=== PATIENT | female | born 1975 | race Hispanic/Latino ===

== ENCOUNTER 2017-03-13 16:00 | Emergency (ER) | payer SELFPAY | END 2017-03-13 20:51 | disposition left against medical advice (07) | LOC: ED 16:00 | DX: N20.0 Calculus of kidney (principal); Z53.21 Procedure and treatment not carried out due to patient leaving prior to being seen by health care provider ==

== ENCOUNTER 2017-06-02 06:26 | Day surgery (SDC) | payer MEDICAID ==
--- NOTE | 2017-06-02 07:50 | Discharge Summary ---
Providers - Providers Date of discharge: 06/02/17 Attending physician: ALPHONSE ELI Primary care physician: SEAM STEAMER Hospitalization Condition: Good Procedures: egd Disposition: - TO HOME OR SELFCARE Core Measure Documentation - Palliative Care Palliative Care/ Comfort Measures: Not Applicable - Core Measures Any of the following diagnoses?: none Exam - Physical Exam Narrative exam: unchanged from pre-op Plan Activity: no restrictions Weight Bearing Status: Full Weight Bearing Diet: regular Follow up with: PRIMARY CARE, [Primary Care Provider] - 7 Days
--- NOTE | 2017-06-02 08:14 | Anesthesia Consultation ---
Anesthesia Consult and Med Hx Date of service: 06/02/17 - Airway Anesthetic Teeth Evaluation: Good ROM Head & Neck: Adequate Mental/Hyoid Distance: Adequate Mallampati Class: Class II Intubation Access Assessment: Probably Good - Pulmonary Exam CTA: Yes - Cardiac Exam Cardiac Exam: RRR - Pre-Operative Health Status ASA Pre-Surgery Classification: ASA3 Proposed Anesthetic Plan: MAC - Pulmonary Hx Sleep Apnea: Yes (CPAP) - Central Nervous System Hx Psychiatric Problems: No - Gastrointestinal Hx Gastroesophageal Reflux Disease: No (never gets heartburn) - Hematic Hx Anemia: No Hx Sickle Cell Disease: No - Other Systems Hx Cancer: No Hx Obesity: Yes (morbid)
--- NOTE | 2017-06-02 08:14 | Anesthesia Day of Surgery ---
Anesthesia Day of Surgery - Day of Surgery Patient Examined: Yes Patient H&P Reviewed: Yes Patient is NPO: Yes
[2017-06-02] MEDS ORDERED: NACL 0.9% 1000 ML 1,000 ML IV SCH (09:00)
--- NOTE | 2017-06-02 10:04 | Operative Report ---
Operative Report Operative Report: OPERATIVE REPORT - EGD DATE 06/02/17 SURGERY: Upper endoscopy. SURGEON: Lynn Selby M.D. PRE OP DX: dyspepsia POST OP DX: small hiatal hernia TYPE OF ANESTHESIA: MAC. ESTIMATED BLOOD LOSS: None. COMPLICATIONS: None. SPECIMENS REMOVED: None. FINDINGS: 1. Small hiatal hernia. 2. Otherwise, normal esophagus, stomach and first portion of duodenum. INDICATIONS:INDICATION FOR PROCEDURE: Patient is a 41-year-old female with a long history of morbid obesity. She is planned to have a weight loss procedure and is here for preoperative planning EGD. We are evaluating for any pathology that may explain her symptoms or be a contraindication for bariatric surgery. PROCEDURE DETAILS: After consent was reviewed, patient was taken back to the operating room where patient was placed in the left lateral decubitus position and a bite block was placed in the mouth. After a time-out was called, MAC anesthesia was initiated. I then passed the endoscope into her oropharynx, into her esophagus, visualized the entire esophagus, which was all within normal limits. I then visualized the stomach and the first portion of the duodenum and there were no abnormalities I could clearly visualize. I then retroflexed the scope in the stomach and visualized the hiatus and I could see a small hiatal hernia. I then desufflated the stomach and removed the endoscope. Patient tolerated procedure well and was transferred to recovery room in good and stable condition.
[2017-06-02] MEDS ORDERED: DIPRIVAN 10 MG/ML IV ONE (10:25)
--- NOTE | 2017-06-02 10:37 | Post Anesthesia Evaluation ---
- Post Anesthesia Evaluation Patient Participated: Yes Airway Patent: Yes Stable Respiratory Function: Yes Temp > 96.8F: Yes Pain Manageable: Yes Adequeate Hydration: Yes Anesthesia Complications: No
[2017-06-02 12:35] VITALS: BP 117/69
== END 2017-06-02 06:27 | disposition home or self-care (01) ==
LOC: GIO 06:26
PROVIDERS: ATTEND Surgery
DX: K44.9 Diaphragmatic hernia without obstruction or gangrene (principal); G47.33 Obstructive sleep apnea (adult) (pediatric); F30.10 Manic episode without psychotic symptoms, unspecified; E66.01 Morbid (severe) obesity due to excess calories; Z68.41 Body mass index [BMI] 40.0-44.9, adult; Z98.890 Other specified postprocedural states; Z98.51 Tubal ligation status
CPT/HCPCS: 43235; 81025; J2704; J7030

== ENCOUNTER 2017-06-02 09:45 | Inpatient (IN) | payer MEDICAID ==
[2017-06-09] MEDS ORDERED: NACL BACTERIOSTATIC INFILTRATI ONE (06:57)
[2017-06-09] MEDS ORDERED: NACL 0.9% 1000 ML 1,000 ML IV SCH (07:00)
[2017-06-09] MEDS ORDERED: ANCEF/STERILE WATER 2 GM/20 ML IV NR (07:00)
[2017-06-09] MEDS ORDERED: TRANSDERM-SCOP TD NR (07:00)
[2017-06-09] MEDS ORDERED: VERSED IV NR (07:19)
--- NOTE | 2017-06-09 07:23 | Anesthesia Consultation ---
Anesthesia Consult and Med Hx Date of service: 06/09/17 - Airway Anesthetic Teeth Evaluation: Good ROM Head & Neck: Adequate Mental/Hyoid Distance: Adequate Mallampati Class: Class III Intubation Access Assessment: Possibly Difficult - Pre-Operative Health Status ASA Pre-Surgery Classification: ASA3 Proposed Anesthetic Plan: General - Pulmonary Hx Sleep Apnea: Yes - Central Nervous System Hx Psychiatric Problems: No - Gastrointestinal Hx Gastroesophageal Reflux Disease: No (never gets heartburn) - Hematic Hx Anemia: No Hx Sickle Cell Disease: No - Other Systems Hx Cancer: No Hx Obesity: Yes (morbid BMI 43.8)
--- NOTE | 2017-06-09 07:23 | Anesthesia Day of Surgery ---
Anesthesia Day of Surgery - Day of Surgery Patient Examined: Yes Patient H&P Reviewed: Yes Patient is NPO: Yes
[2017-06-09] MEDS ORDERED: ZEMURON IV ONE (07:24)
[2017-06-09] MEDS ORDERED: MARCAINE-EPI/PF 0.5%-1:200,000 INFILTRATI ONE ×2 (07:24→07:46)
[2017-06-09] MEDS ORDERED: XYLOCAINE 1% 20 mL ONE (07:24)
[2017-06-09] MEDS ORDERED: XYLOCAINE MPF 2% ONE (07:25)
[2017-06-09] MEDS ORDERED: DILAUDID ONE ×2 (07:25→12:04)
[2017-06-09] MEDS ORDERED: DIPRIVAN 10 MG/ML IV ONE (07:25)
[2017-06-09] MEDS ORDERED: PEPCID IV SCH (07:30)
[2017-06-09] MEDS ORDERED: FLAGYL 500 MG/100 ML 500 MG/100 ML BAG IV NR (07:30)
[2017-06-09] MEDS ORDERED: LOVENOX SUB-Q NR (07:30)
[2017-06-09] MEDS ORDERED: XYLOCAINE 1% 20 mL INFILTRATI ONE (07:46)
[2017-06-09] MEDS ORDERED: DILAUDID IV PRN (07:46)
[2017-06-09] MEDS ORDERED: ZOFRAN IV PRN ×2 (07:46→12:06)
[2017-06-09] MEDS ORDERED: NACL 0.9% IR ONE ×2 (07:46)
[2017-06-09] MEDS ORDERED: APRESOLINE IV PRN (07:58)
[2017-06-09] MEDS ORDERED: NORCO PO PRN (07:58)
[2017-06-09] MEDS ORDERED: ePHEDrine SULFATE ONE (08:56)
[2017-06-09] MEDS ORDERED: NACL 0.9% 1000 ML 1,000 ML ONE (09:23)
[2017-06-09] MEDS ORDERED: DECADRON ONE (09:30)
[2017-06-09] MEDS ORDERED: NEOSTIGMINE ONE (10:12)
[2017-06-09] MEDS ORDERED: ROBINUL ONE (10:12)
[2017-06-09] MEDS ORDERED: REGLAN IV PRN (11:00)
[2017-06-09] MEDS: TORADOL IV SCH ×3 (12:00→23:00)
[2017-06-09] MEDS ORDERED: DEMEROL IV PRN (12:06)
[2017-06-09] MEDS: DILAUDID IV PRN ×4 (12:12→12:45)
--- NOTE | 2017-06-09 12:52 | Post Anesthesia Evaluation ---
- Post Anesthesia Evaluation Patient Participated: Yes Airway Patent: Yes Stable Respiratory Function: Yes Nausea/Vomiting: No Temp > 96.8F: Yes Pain Manageable: Yes Adequeate Hydration: Yes Anesthesia Complications: No Block Receding Appropriately: Not Applicable Patient on Ventilator: No
[2017-06-09] MEDS: ZOFRAN IV PRN ×2 (15:48→19:51)
--- NOTE | 2017-06-09 16:20 | Operative Report ---
Operative Report Operative Report: Operative Report DATE OF PROCEDURE: 06/09/17 SURGEON: Lynn Selby M.D. HOG SCALDER: Jaylen Matson DO PREOPERATIVE DIAGNOSIS: Morbid obesity. POSTOPERATIVE DIAGNOSES: Morbid obesity PROCEDURES PERFORMED: 1. Laparoscopic gastric bypass. 2. EGD. ANESTHESIA: General endotracheal tube intubation. SPECIMENS: None. ESTIMATED BLOOD LOSS: Less than 10 mL. FINDINGS: Normal anatomy. COMPLICATIONS: None. INDICATION: Ms. Vanegas is a 41-year-old female with history of morbid obesity. She signed informed consent and expressed understanding of risks and benefits. DESCRIPTION OF PROCEDURE: Patient was brought to the OR suite, laid in supine position. Bilateral lower extremity SCDs were placed. General anesthesia was induced via successful endotracheal tube intubation. Patient's abdomen was prepped and draped in sterile fashion. Veress needle was inserted with ease into left upper quadrant. Insufflation to 12-15 was completed. Next using Optiview technique, a 12-mm trocar was placed into the abdominal cavity under direct vision. There was noted to be no gross injury to any intraabdominal structures. at the site of the veress needle insertion and the veress needle was removed. 5 working trocars were placed under direct visualization, 12 mm in the right mid abdomen mid clavicular line and four 5-mm trocars in the right upper quadrant, epigastric, left upper quadrant and left mid abdomen. At this time, the ligament of Treitz identified and followed down approximately 30 cm and the jejunum was transected. The distal segment of jejunum was then traced for approximately 75 cm and a stable [id number] jejunojejunostomy was performed. The common enterotomy was closed with 2 firings of the endoscopic stapler. The mesenteric defect was closed with running Surgidac suture. This anastomosis was found to be patent without kink, obstruction or bleeding. At this time, the patient was placed in steep reverse Trendelenburg position. A liver retractor was placed through the epigastric port to elevate the left lateral lobe of the liver. A small gastric pouch was formed. The Kaur limb was then brought in an antegastric antecolic fashion and secured with 2 stay sutures to the gastric pouch. After this, the enterotomies were made with Harmonic scalpel, and a [id number] stapled gastrojejunostomy was performed with a mechanical stapler. After this, a 2-layer running closure using Polysorb suture were done, the first being mucosal approximation prior to completion of the first layer. Next an EGD scope beyond the anastomosis to act as a stent. The first layer was completed, the second was then performed. After this, the EGD was retracted slightly. A bowel clamp was placed in a proximal Kaur limb. The anastomosis was submerged under saline. Via intraluminal EGD insufflation, there was noted be no bubbles in the saline indicating an airtight anastomosis. There was noted to be no obstruction or bleeding intraluminally in the pouch or the anastomosis. At this time, the scope was removed. The saline was aspirated. Tiseel was placed over the anastomosis. All trocars were removed under direct visualization and the abdomen was then desufflated. The skin incisions were closed with 4-0 Monocryl followed by Dermabond dressings. Patient was awoken and taken to recovery in stable condition. All counts were correct.
[2017-06-09] MEDS: ANCEF/NS 1 GM/50 ML 1 GM/50 ML BAG IV SCH (16:34)
[2017-06-09] MEDS: LACTATED RINGERS 1,000 ML IV SCH (16:37)
[2017-06-09] MEDS: MYLICON PO PRN (19:51)
[2017-06-09] MEDS: MORPHINE IV PRN ×2 (19:52→23:58)
[2017-06-09] MEDS: FLAGYL 500 MG/100 ML 500 MG/100 ML BAG IV SCH (22:52)
[2017-06-10] MEDS: MORPHINE IV PRN ×2 (03:17→08:33)
[2017-06-10] MEDS: ANCEF/NS 1 GM/50 ML 1 GM/50 ML BAG IV SCH (03:18)
[2017-06-10] MEDS: LACTATED RINGERS 1,000 ML IV SCH ×2 (03:18→10:38)
[2017-06-10 05:06] LABS: Basophils % (Auto) 0.4 % (0.0-1.8); Eosinophils % (Auto) 0.4 % (0.0-4.3); Hematocrit 35.7 % (30.3-42.9); Hemoglobin 11.9 gm/dl (10.1-14.3); Mean Corpuscular HGB Conc 33 % (30-34); Mean Corpuscular Hemoglobin 30 pg (28-32); Mean Corpuscular Volume 91 fl (79-97); Platelet Count 244 K/mm3 (140-440); Red Blood Count 3.92 M/mm3 (3.65-5.03); Red Cell Distribution Width 13.5 % (13.2-15.2); White Blood Count 11.9 K/mm3 (4.5-11.0)
[2017-06-10] MEDS: FLAGYL 500 MG/100 ML 500 MG/100 ML BAG IV SCH (05:21)
[2017-06-10 05:25] LABS: Alanine Aminotransferase 25 units/L (7-56); Albumin 3.3 g/dL (3.9-5); Albumin/Globulin Ratio 1.1 %; Alkaline Phosphatase 87 units/L (35-129); Anion Gap 19 mmol/L; BUN/Creatinine Ratio 11; Blood Urea Nitrogen 9 mg/dL (7-17); Calcium 8.4 mg/dL (8.4-10.2); Carbon Dioxide 24 mmol/L (22-30); Chloride 102.9 mmol/L (98-107); Glucose 98 mg/dL (65-100); Potassium 3.7 mmol/L (3.6-5.0); Sodium 142 mmol/L (137-145); Total Protein 6.3 g/dL (6.3-8.2)
[2017-06-10] MEDS: MYLICON PO PRN ×2 (05:25→15:04)
[2017-06-10] MEDS: TORADOL IV SCH ×2 (08:52→14:00)
--- NOTE | 2017-06-10 09:55 | Progress Note ---
Subjective Date of service: 06/10/17 Interval history: Pt is awake and alert. No anesthetic related complaints. Objective - Constitutional Vitals: Vital Signs - 12hr 06/09/17 06/09/17 06/10/17 23:35 23:36 04:34 Temperature 98.9 F 97.8 F Pulse Rate 84 67 59 L Respiratory 18 16 Rate Blood Pressure 124/69 114/63 O2 Sat by Pulse 97 97 97 Oximetry 06/10/17 06/10/17 07:25 09:16 Temperature 98.9 F Pulse Rate 76 Respiratory 18 Rate Blood Pressure 120/60 O2 Sat by Pulse 94 98 Oximetry - Labs CBC & Chem 7: 06/10/17 04:24 06/10/17 04:24 Labs: Abnormal lab results 06/10/17 06/10/17 Range/Units 04:24 04:24 WBC 11.9 H (4.5-11.0) K/mm3 Seg Neutrophils % 75.7 H (40.0-70.0) % Seg Neutrophils # 9.0 H (1.8-7.7) K/mm3 Albumin 3.3 L (3.9-5) g/dL
[2017-06-10] MEDS ORDERED: LOVENOX SUB-Q SCH (10:00)
--- NOTE | 2017-06-10 12:25 | Discharge Summary ---
Providers - Providers Date of Admission: 06/09/17 05:54 Date of discharge: 06/10/17 Attending physician: ALPHONSE ELI 06/09/17 06:47 Consult to Anesthesiology [CONS] Routine Consulting Provider: RYAN ANESTHESIA CECE TERRAZAS Reason For Exam: SURGERY TODAY Primary care physician: NATALI MURRAY MD Hospitalization Condition: Good Procedures: lap gastric bypass Hospital course: pt was admitted and observed after an uneventful laparoscopic gastric bypass. She remained afebrile and hemodynamically stable while tolerating clear liquids and ambulating. She was discharged to home after showing no clinical signs of leak or bleeding. Disposition: DC-01 TO HOME OR SELFCARE Core Measure Documentation - Palliative Care Palliative Care/ Comfort Measures: Not Applicable - Core Measures Any of the following diagnoses?: none Exam - Constitutional Vitals: Temp Pulse Resp BP Pulse Ox 98.9 F 84 16 120/67 98 06/10/17 12:16 06/10/17 12:16 06/10/17 12:16 06/10/17 12:16 06/10/17 12:16 General appearance: Present: no acute distress - EENT Eyes: Present: PERRL - Neck Neck: Present: normal ROM - Respiratory Respiratory effort: normal - Abdominal General gastrointestinal: Present: other (incisions c/d/i, appropriatley tender to palpation) Plan Activity: advance as tolerated Weight Bearing Status: Full Weight Bearing Diet: other Wound: open to air (sugar free clear liquids) Follow up with: PRIMARY MD TREVOR [Primary Care Provider] - 7 Days
[2017-06-10 16:18] VITALS: BP 104/54
== END 2017-06-10 17:30 | disposition home or self-care (01) | DRG 620 ==
LOC: 3A 06-09 05:54 → 3B-SURG 06-09 12:02
PROVIDERS: ADMIT Surgery; ATTEND Surgery
PROC: 0D164ZA Bypass Stomach to Jejunum, Percutaneous Endoscopic Approach (ICD-10-PCS; principal; 2017-06-09)
PROC: 0DJ08ZZ Inspection of Upper Intestinal Tract, Via Natural or Artificial Opening Endoscopic (ICD-10-PCS; 2017-06-09)
DX: E66.01 Morbid (severe) obesity due to excess calories (principal); F30.10 Manic episode without psychotic symptoms, unspecified; G47.30 Sleep apnea, unspecified; K30 Functional dyspepsia; N39.3 Stress incontinence (female) (male); Z68.42 Body mass index [BMI] 45.0-49.9, adult; Z90.89 Acquired absence of other organs; Z98.51 Tubal ligation status; Z83.3 Family history of diabetes mellitus
CPT/HCPCS: 36415; 80053; 81025; 85025; A4217; C9250; J0690; J1100; J1170; J1650; J1885; J2250; J2270; J2405; J2704; J2710; J7030; J7120